=== PATIENT | male | born 1955 | race Caucasian/White ===

== ENCOUNTER 2022-03-10 09:07 | Day surgery (SDC) | payer OTHER ==
[2022-03-07 17:10] VITALS: BMI 33.9
[~2022-03-10 09:07] MED LIST: LACTATED RINGERS SOLUTION 1,000 ML IV SCH; ONDANSETRON 4 MG/2 ML VIAL IVPUSH PRN
[2022-03-10] MEDS ORDERED: MIDAZOLAM HCL 2 MG/2 ML SINGLE DOSE VIAL ONE (12:25)
[2022-03-10] MEDS ORDERED: ROPIVACAINE HCL 0.5% 30ML VIAL ONE (12:25)
[2022-03-10] MEDS ORDERED: PROPOFOL 40 ML ONE (12:50)
[2022-03-10] MEDS ORDERED: LIDOCAINE HCL/PF 2% SDV 5ML VIAL ONE (12:50)
[2022-03-10] MEDS ORDERED: GLYCOPYRROLATE 0.2 MG/1 ML VIAL ONE ×2 (12:50→13:22)
[2022-03-10] MEDS ORDERED: SUCCINYLCHOLINE CHLORIDE 200 MG/10 ML SYRINGE ONE (12:56)
[2022-03-10] MEDS ORDERED: ONDANSETRON 4 MG/2 ML VIAL ONE (13:00)
[2022-03-10] MEDS ORDERED: ceFAZolin SODIUM 1 GM VIAL ONE (13:00)
[2022-03-10] MEDS ORDERED: DEXAMETHASONE SOD PHOSPHATE 4 MG/1 ML VIAL ONE (13:00)
[2022-03-10] MEDS ORDERED: PHENYLEPHRINE HCL 10 MG/1 ML SINGLE DOSE VIAL ONE ×2 (13:05→14:28)
[2022-03-10] MEDS ORDERED: PROPOFOL 20 ML ONE (14:54)
[2022-03-10] MEDS ORDERED: ONDANSETRON 4 MG/2 ML VIAL IVPUSH PRN (17:11)
[2022-03-10] MEDS ORDERED: oxyCODONE HCL 5 MG TABLET PO PRN (17:11)
[2022-03-10] MEDS ORDERED: LACTATED RINGERS SOLUTION 1,000 ML IV SCH (17:15)
[2022-03-10 17:29] VITALS: TEMP 97.4
[2022-03-10 18:10] VITALS: PULSE 74; RESP 18
[2022-03-10 18:55] VITALS: BP 148/74
== END 2022-03-10 18:45 | disposition home or self-care (01) ==
LOC: FASU 09:07
PROVIDERS: ATTEND Orthopaedic Surgery Sports Medicine
PROC: 0LM24ZZ Reattachment of Left Shoulder Tendon, Percutaneous Endoscopic Approach (ICD-10-PCS; principal; 2022-03-10 13:36)
PROC: 0RNK4ZZ Release Left Shoulder Joint, Percutaneous Endoscopic Approach (ICD-10-PCS; 2022-03-10 13:36)
DX: M75.122 Complete rotator cuff tear or rupture of left shoulder, not specified as traumatic (principal); M75.42 Impingement syndrome of left shoulder; M75.22 Bicipital tendinitis, left shoulder
CPT/HCPCS: 94760; C1713

== ENCOUNTER 2022-07-21 06:59 | Day surgery (SDC) | payer OTHER ==
[2022-07-18 16:38] VITALS: BMI 34.5
[2022-07-21 07:39] VITALS: TEMP 98
[2022-07-21] MEDS ORDERED: DEXAMETHASONE SOD PHOSPHATE/PF 10 MG/ML SDV ONE (08:42)
[2022-07-21] MEDS ORDERED: MIDAZOLAM HCL 2 MG/2 ML SINGLE DOSE VIAL ONE (08:42)
[2022-07-21] MEDS ORDERED: FENTANYL CITRATE/PF 50 MCG/ML VIAL ONE (08:42)
[2022-07-21] MEDS ORDERED: ROPIVACAINE HCL 0.5% 30ML VIAL ONE (08:43)
[2022-07-21] MEDS ORDERED: PROPOFOL 40 ML ONE (09:09)
[2022-07-21] MEDS ORDERED: ceFAZolin SODIUM 1 GM VIAL ONE (09:18)
[2022-07-21] MEDS ORDERED: ONDANSETRON 4 MG/2 ML VIAL ONE ×2 (09:30→12:51)
[2022-07-21] MEDS ORDERED: DEXAMETHASONE SOD PHOSPHATE 4 MG/1 ML VIAL ONE (09:30)
[2022-07-21] MEDS ORDERED: TRANEXAMIC ACID 1000 MG/10 ML VIAL ONE (09:39)
[2022-07-21] MEDS ORDERED: IBUPROFEN 800 MG/8 ML IJ IVPB PRN (13:42)
[2022-07-21] MEDS ORDERED: oxyCODONE HCL 5 MG TABLET PO PRN (13:42)
[2022-07-21] MEDS ORDERED: ONDANSETRON 4 MG/2 ML VIAL IVPUSH PRN (13:42)
[2022-07-21] MEDS ORDERED: LACTATED RINGERS SOLUTION 1,000 ML IV SCH (13:45)
[2022-07-21 15:56] VITALS: RESP 18
[2022-07-21 15:58] VITALS: BP 113/67; PULSE 85
== END 2022-07-21 15:45 | disposition home or self-care (01) ==
LOC: FASU 06:59
PROVIDERS: ATTEND Orthopaedic Surgery Sports Medicine
PROC: 0LS34ZZ Reposition Right Upper Arm Tendon, Percutaneous Endoscopic Approach (ICD-10-PCS; principal; 2022-07-21 09:36)
PROC: 0RNJ4ZZ Release Right Shoulder Joint, Percutaneous Endoscopic Approach (ICD-10-PCS; 2022-07-21 09:36)
PROC: 0PB94ZZ Excision of Right Clavicle, Percutaneous Endoscopic Approach (ICD-10-PCS; 2022-07-21 09:36)
DX: M75.101 Unspecified rotator cuff tear or rupture of right shoulder, not specified as traumatic (principal); M75.41 Impingement syndrome of right shoulder; M75.21 Bicipital tendinitis, right shoulder
CPT/HCPCS: 94760; C1713; C1763; C1883